=== PATIENT | female | born 1965 | race Hispanic/Latino ===

== ENCOUNTER 2023-07-12 14:01 | Emergency (ER) | payer BC, SELFPAY ==
[2023-07-12] MEDS ORDERED: Ondansetron PF 4 MG/2 ML Vial ONE (14:28)
[2023-07-12] MEDS ORDERED: Morphine 4 MG/ML VIAL ONE (14:28)
[2023-07-12 14:43] LABS: #Basophils Less than 0.03 10x3/uL (0.0-0.2); %Basophils 0.2 % (0.0-1.0); %Eosinophils 0.7 % (0.0-10.0); %Lymphocytes 25.6 % (21.0-51.0); %Monocytes 9.2 % (0.0-10.0); Hematocrit 42.9 % (36.0-47.0); Hemoglobin 13.7 g/dL (12.0-16.0); Mean Corpuscular HGB CONC 31.9 g/dL (32.0-36.0); Mean Corpuscular Hemoglobin 27.1 pg (27.0-31.0); Mean Platelet Volume 10.4 fL (7.4-10.4); Platelet Count 279 10x3/uL (130-400); RBC Distribution Width 16.5 % (11.5-14.5); Red Blood Cell (RBC) Count 5.05 mill/uL (4.20-5.40)
[2023-07-12 15:12] LABS: ALT (SGPT) 81 U/L (8-55); AST (SGOT) 58 U/L (5-34); Albumin 3.2 g/dL (3.5-5.0); Alkaline Phosphatase 157 U/L (40-110); Anion Gap 18 mmol/L (10-20); BUN (Urea Nitrogen) 10 mg/dL (9.8-20.1); Bilirubin, Total 0.6 mg/dL (0.2-1.2); Calc. Creatinine Clearance 0 mL/min (70-130); Calcium 10.3 mg/dL (7.8-10.44); Carbon Dioxide 22 mmol/L (22-29); Chloride 105 mmol/L (98-107); Estimated GFR 99; Globulin 3.9 g/dL (2.4-3.5); Glucose 213 mg/dL (70-105); Lipase 44 U/L (8-78); Magnesium 1.6 mg/dL (1.6-2.6); Potassium 3.4 mmol/L (3.5-5.1); Protein, Total 7.1 g/dL (6.0-8.3); Sodium 142 mmol/L (136-145)
[2023-07-12 15:16] LABS: Troponin I Less than 0.010 ng/mL (< 0.028)
[2023-07-12] MEDS ORDERED: Iopamidol-370 76% 500 ML MDV (1 ML CHARGE) ONE (15:18)
[2023-07-12 15:28] LABS: Bilirubin Negative (Negative); Blood, Urine Negative (Negative); CAUTI Indications for Culture Pelvic or flank pain; Clarity Clear (Clear); Glucose, Urine (Dipstick) Normal (Negative); Ketone, Urine Negative (Negative); Leukocyte Negative Leu/uL (Negative); Nitrite 1+ (Negative); Protein, Urine (Dipstick) Negative (Neg-Trace); RBC/HPF None Seen HPF (0-3); Specific Gravity, Urine 1.011 (1.002-1.036); Squamous Epithelial 0-3 HPF (0-3); WBC/HPF 0-3 HPF (0-3)
[2023-07-12 15:31] LABS: Bacteria/HPF 1+ HPF (None Seen)
[2023-07-12 15:32] LABS: Urine Culture Reflex No No
[2023-07-12] MEDS ORDERED: Potassium Bicarbonate/Cit Ac 20 MEQ TAB ONE (15:50)
[2023-07-12] MEDS ORDERED: Magnesium 2 GM/50 ML BAG (IN WATER) ONE (15:50)
[2023-07-12] MEDS ORDERED: diphenhydrAMINE 50 MG/ML VIAL ONE (17:26)
[2023-07-12] MEDS ORDERED: Nitrofurantoin Monohyd/M-Cryst 100 MG CAP ONE (17:58)
== END 2023-07-12 20:20 | disposition home or self-care (01) ==
LOC: ERS 14:01
DX: N39.0 Urinary tract infection, site not specified (principal); R11.2 Nausea with vomiting, unspecified; E83.42 Hypomagnesemia; E87.6 Hypokalemia; I10 Essential (primary) hypertension; K21.9 Gastro-esophageal reflux disease without esophagitis; M19.90 Unspecified osteoarthritis, unspecified site
CPT/HCPCS: 36415; 71045; 74177; 80053; 81001; 83605; 83690; 83735; 84484; 85025; 93005; 96361; 96374; 96375; J1200; J2270; J2405; J3475; Q9967

== ENCOUNTER 2023-07-23 18:54 | Inpatient (IN) | payer SELFPAY ==
[2023-07-23 19:50] LABS: #Basophils Less than 0.03 10x3/uL (0.0-0.2); %Basophils 0.1 % (0.0-1.0); %Lymphocytes 22.8 % (21.0-51.0); %Monocytes 8.2 % (0.0-10.0); %Neutrophils 66.3 % (42.0-75.0); Hematocrit 43.4 % (36.0-47.0); Hemoglobin 13.6 g/dL (12.0-16.0); Mean Corpuscular HGB CONC 31.3 g/dL (32.0-36.0); Mean Corpuscular Hemoglobin 27.4 pg (27.0-31.0); Mean Corpuscular Volume 87.5 fL (78.0-98.0); Mean Platelet Volume 10.2 fL (7.4-10.4); Platelet Count 398 10x3/uL (130-400); RBC Distribution Width 15.9 % (11.5-14.5); Red Blood Cell (RBC) Count 4.96 mill/uL (4.20-5.40)
[2023-07-23 20:03] LABS: ALT (SGPT) 62 U/L (8-55); AST (SGOT) 44 U/L (5-34); Albumin 3.2 g/dL (3.5-5.0); Alkaline Phosphatase 141 U/L (40-110); Anion Gap 17 mmol/L (10-20); BUN (Urea Nitrogen) 13 mg/dL (9.8-20.1); Bilirubin, Total 0.5 mg/dL (0.2-1.2); Calc. Creatinine Clearance 0 mL/min (70-130); Calcium 9.6 mg/dL (7.8-10.44); Carbon Dioxide 18 mmol/L (22-29); Chloride 109 mmol/L (98-107); Estimated GFR 101; Globulin 3.5 g/dL (2.4-3.5); Glucose 134 mg/dL (70-105); Lipase 56 U/L (8-78); Magnesium 1.6 mg/dL (1.6-2.6); Potassium 4.1 mmol/L (3.5-5.1); Protein, Total 6.7 g/dL (6.0-8.3); Sodium 140 mmol/L (136-145)
[2023-07-23 20:09] LABS: Troponin I Less than 0.010 ng/mL (< 0.028)
[2023-07-23] MEDS ORDERED: Acetaminophen 500 MG TAB ONE (22:01)
[2023-07-23] MEDS ORDERED: Cefepime 2 GM VIAL ONE (23:26)
[2023-07-23] MEDS ORDERED: Sodium Chloride 0.9% 100 ML ONE (23:26)
[2023-07-23 23:38] LABS: Bilirubin Negative (Negative); Blood, Urine Negative (Negative); CAUTI Indications for Culture < 2yrs of age; Clarity Clear (Clear); Glucose, Urine (Dipstick) Normal (Negative); Ketone, Urine Trace mg/dL (Negative); Leukocyte 250 Leu/uL (Negative); Nitrite Negative (Negative); Protein, Urine (Dipstick) 20 mg/dL (Neg-Trace); RBC/HPF 0-3 HPF (0-3); Specific Gravity, Urine 1.023 (1.002-1.036); Squamous Epithelial 0-3 HPF (0-3); Urobilinogen Normal mg/dL (Less than 2); WBC/HPF 21-50 HPF (0-3); pH, Urine 5.5 (5.0-9.0)
[2023-07-23 23:40] LABS: Bacteria/HPF 1+ HPF (None Seen)
[2023-07-23 23:41] LABS: Urine Culture Reflex Yes Yes
[2023-07-24 01:56] LABS: Troponin I Less than 0.010 ng/mL (< 0.028)
[2023-07-24] MEDS ORDERED: methylPREDNISolone Sod Succ/PF 125 MG/2 ML VIAL ONE (02:14)
[2023-07-24] MEDS ORDERED: diphenhydrAMINE 50 MG/ML VIAL ONE (02:14)
[2023-07-24] MEDS ORDERED: Famotidine/PF 20 mg/2ml Vial ONE (02:16)
[2023-07-24] MEDS ORDERED: Ondansetron ODT 4 MG TAB SL PRN (02:45)
[2023-07-24] MEDS ORDERED: Acetaminophen 325 MG TAB PO PRN (02:45)
[2023-07-24] MEDS ORDERED: Ondansetron PF 4 MG/2 ML Vial IVP PRN (02:45)
[2023-07-24] MEDS ORDERED: Acetaminophen 650 MG Suppository PR PRN (02:47)
[2023-07-24 02:48] LABS: Mononucleosis NEGATIVE (NEGATIVE)
[2023-07-24 02:49] LABS: MONO NEGATIVE CONTROL ZONE White (Negative) (White); MONO POSITIVE CONTROL Pink Line (Positive) (PINK/RED)
[2023-07-24 04:32] LABS: #Basophils Less than 0.03 10x3/uL (0.0-0.2); %Basophils 0.2 % (0.0-1.0); %Eosinophils 1.2 % (0.0-10.0); %Lymphocytes 18.1 % (21.0-51.0); %Monocytes 3.8 % (0.0-10.0); %Neutrophils 76.4 % (42.0-75.0); Hematocrit 38.8 % (36.0-47.0); Hemoglobin 12.4 g/dL (12.0-16.0); Mean Corpuscular Hemoglobin 27.2 pg (27.0-31.0); Mean Corpuscular Volume 85.1 fL (78.0-98.0); Mean Platelet Volume 10.2 fL (7.4-10.4); Platelet Count 330 10x3/uL (130-400); RBC Distribution Width 15.8 % (11.5-14.5); Red Blood Cell (RBC) Count 4.56 mill/uL (4.20-5.40)
[2023-07-24 04:50] LABS: Anion Gap 12 mmol/L (10-20); BUN (Urea Nitrogen) 12 mg/dL (9.8-20.1); Calc. Creatinine Clearance 0 mL/min (70-130); Calcium 9.3 mg/dL (7.8-10.44); Carbon Dioxide 20 mmol/L (22-29); Chloride 111 mmol/L (98-107); Estimated GFR 106; Glucose 159 mg/dL (70-105); Potassium 3.7 mmol/L (3.5-5.1); Sodium 139 mmol/L (136-145)
[2023-07-24 04:54] LABS: Troponin I Less than 0.010 ng/mL (< 0.028)
[2023-07-24 07:30] VITALS: BMI 32.3
[2023-07-24 08:32] LABS: ALT (SGPT) 50 U/L (8-55); AST (SGOT) 36 U/L (5-34); Albumin 2.7 g/dL (3.5-5.0); Alkaline Phosphatase 126 U/L (40-110); Bilirubin, Direct 0.2 mg/dL (0.1-0.3); Bilirubin, Total 0.5 mg/dL (0.2-1.2); Protein, Total 5.9 g/dL (6.0-8.3)
[2023-07-24 08:35] LABS: Troponin I Less than 0.010 ng/mL (< 0.028)
[2023-07-24 08:54] LABS: HBCM Index 0.07 S/CO (0-0.79); HBsAg Index 0.27 S/CO (0-0.99); Hep A IgM AB NONREACTIVE (NonReactive); Hep A IgM S/CO 0.22 S/CO (0-0.79); Hep B Surf Ag NONREACTIVE S/CO (NonReactive); Hep C IgG Ab NONREACTIVE S/CO (NonReactive); Hep C Index 0.08 S/CO (0-0.79); Hepatitis B Core IgM Abs NONREACTIVE S/CO (NonReactive)
[2023-07-24] MEDS ORDERED: cefTRIAXone\\ROCEPHIN 2 GM in Sodium Chloride 0.9% 100 ML IVPB SCH (09:00)
[2023-07-24] MEDS: LevoFLOXacin 750 MG TAB PO SCH (09:09)
[2023-07-24] MEDS: Enoxaparin 40 MG (0.4 mL) SYRINGE SC SCH (09:09)
[2023-07-24] MEDS ORDERED: Cefepime 2 GM in Sodium Chloride 0.9% 100 ML IVPB SCH (10:00)
[2023-07-24] MEDS ORDERED: Iopamidol-370 76% 500 ML MDV (1 ML CHARGE) ONE (12:46)
[2023-07-24] MEDS: Hydrocortisone Sod Succ/PF 500 mg/4 ml Vial SLOW IVP SCH (15:33)
[2023-07-24] MEDS: Propranolol 40 MG TAB PO SCH (15:34)
[2023-07-24] MEDS: Methimazole 10 MG TAB PO SCH ×2 (15:34→20:35)
[2023-07-24] MEDS: Propranolol 10 MG TAB PO SCH (20:35)
[2023-07-24] MEDS: Hydrocortisone Sod Succ/PF 100 mg/2 ml Vial IVP SCH (22:33)
[2023-07-25] MEDS: LevoFLOXacin 750 MG TAB PO SCH (05:14)
[2023-07-25 07:08] LABS: #Basophils Less than 0.03 10x3/uL (0.0-0.2); #Eosinphils Less than 0.03 10x3/uL (0.0-0.7); %Lymphocytes 14.9 % (21.0-51.0); %Monocytes 7.9 % (0.0-10.0); %Neutrophils 76.4 % (42.0-75.0); Hematocrit 36.6 % (36.0-47.0); Hemoglobin 11.6 g/dL (12.0-16.0); Mean Corpuscular HGB CONC 31.7 g/dL (32.0-36.0); Mean Corpuscular Hemoglobin 26.9 pg (27.0-31.0); Mean Corpuscular Volume 84.9 fL (78.0-98.0); Mean Platelet Volume 10.4 fL (7.4-10.4); Platelet Count 324 10x3/uL (130-400); RBC Distribution Width 15.9 % (11.5-14.5); Red Blood Cell (RBC) Count 4.31 mill/uL (4.20-5.40)
[2023-07-25 07:29] LABS: Anion Gap 13 mmol/L (10-20); BUN (Urea Nitrogen) 17 mg/dL (9.8-20.1); Calc. Creatinine Clearance 150 mL/min (70-130); Calcium 9.2 mg/dL (7.8-10.44); Carbon Dioxide 20 mmol/L (22-29); Chloride 113 mmol/L (98-107); Estimated GFR 105; Glucose 195 mg/dL (70-105); Potassium 3.6 mmol/L (3.5-5.1); Sodium 142 mmol/L (136-145)
[2023-07-26 05:17] LABS: #Basophils Less than 0.03 10x3/uL (0.0-0.2); #Eosinphils Less than 0.03 10x3/uL (0.0-0.7); %Lymphocytes 23.3 % (21.0-51.0); %Monocytes 7.1 % (0.0-10.0); %Neutrophils 69.2 % (42.0-75.0); Hematocrit 37.2 % (36.0-47.0); Hemoglobin 11.7 g/dL (12.0-16.0); Mean Corpuscular HGB CONC 31.5 g/dL (32.0-36.0); Mean Corpuscular Hemoglobin 27.4 pg (27.0-31.0); Mean Corpuscular Volume 87.1 fL (78.0-98.0); Mean Platelet Volume 10.7 fL (7.4-10.4); Platelet Count 333 10x3/uL (130-400); RBC Distribution Width 15.7 % (11.5-14.5); Red Blood Cell (RBC) Count 4.27 mill/uL (4.20-5.40)
[2023-07-26 05:37] LABS: ALT (SGPT) 43 U/L (8-55); AST (SGOT) 23 U/L (5-34); Albumin 2.6 g/dL (3.5-5.0); Alkaline Phosphatase 93 U/L (40-110); Anion Gap 16 mmol/L (10-20); BUN (Urea Nitrogen) 17 mg/dL (9.8-20.1); Bilirubin, Total 0.3 mg/dL (0.2-1.2); Calc. Creatinine Clearance 150 mL/min (70-130); Calcium 9.2 mg/dL (7.8-10.44); Carbon Dioxide 21 mmol/L (22-29); Chloride 112 mmol/L (98-107); Estimated GFR 105; Glucose 173 mg/dL (70-105); Potassium 3.6 mmol/L (3.5-5.1); Protein, Total 5.6 g/dL (6.0-8.3); Sodium 145 mmol/L (136-145)
[2023-07-26] MEDS: Propranolol 40 MG TAB PO SCH (10:24)
[2023-07-26] MEDS: predniSONE 20 MG TAB PO SCH (10:25)
[2023-07-26 13:54] VITALS: BMI 32.3
[2023-07-27 04:54] LABS: #Basophils Less than 0.03 10x3/uL (0.0-0.2); #Eosinphils Less than 0.03 10x3/uL (0.0-0.7); %Basophils 0.1 % (0.0-1.0); %Eosinophils 0.1 % (0.0-10.0); %Lymphocytes 29.7 % (21.0-51.0); %Monocytes 11.3 % (0.0-10.0); %Neutrophils 58.3 % (42.0-75.0); Hematocrit 37.8 % (36.0-47.0); Mean Corpuscular HGB CONC 31.7 g/dL (32.0-36.0); Mean Corpuscular Volume 84.9 fL (78.0-98.0); Mean Platelet Volume 10.4 fL (7.4-10.4); Platelet Count 306 10x3/uL (130-400); RBC Distribution Width 15.5 % (11.5-14.5); Red Blood Cell (RBC) Count 4.45 mill/uL (4.20-5.40)
[2023-07-27 05:16] LABS: ALT (SGPT) 39 U/L (8-55); AST (SGOT) 25 U/L (5-34); Albumin 2.6 g/dL (3.5-5.0); Alkaline Phosphatase 88 U/L (40-110); Anion Gap 13 mmol/L (10-20); BUN (Urea Nitrogen) 15 mg/dL (9.8-20.1); Bilirubin, Total 0.3 mg/dL (0.2-1.2); Calc. Creatinine Clearance 152 mL/min (70-130); Calcium 8.9 mg/dL (7.8-10.44); Carbon Dioxide 22 mmol/L (22-29); Chloride 111 mmol/L (98-107); Estimated GFR 106; Globulin 2.8 g/dL (2.4-3.5); Glucose 98 mg/dL (70-105); Potassium 3.3 mmol/L (3.5-5.1); Protein, Total 5.4 g/dL (6.0-8.3); Sodium 143 mmol/L (136-145)
[2023-07-27 12:27] VITALS: BP 137/79; TEMP 97.7
== END 2023-07-27 13:40 | disposition home or self-care (01) | DRG 645 ==
LOC: ERS 18:54 → 2NO 07-24 02:33
PROVIDERS: ADMIT Student in an Organized Health Care Education/Training Program; ATTEND Internal Medicine
DX: E05.91 Thyrotoxicosis, unspecified with thyrotoxic crisis or storm (principal); I10 Essential (primary) hypertension; M19.90 Unspecified osteoarthritis, unspecified site; K21.9 Gastro-esophageal reflux disease without esophagitis; D72.829 Elevated white blood cell count, unspecified; Z98.51 Tubal ligation status; Z96.652 Presence of left artificial knee joint; Z79.899 Other long term (current) drug therapy
CPT/HCPCS: 36415; 71045; 71275; 76536; 76705; 80048; 80053; 80074; 80076; 81001; 83605; 83690; 83735; 83880; 84439; 84443; 84445; 84484; 85025; 86308; 86376; 86800; 87040; 87086; 93005; J0692; J1200; J1650; J1720; J2930; J3490; J7512; Q9967; S0028